=== PATIENT | male | born 1980 ===

== ENCOUNTER 2018-06-12 14:46 | Emergency (ER) | payer OTHER ==
[2018-06-12] MEDS ORDERED: Dextrose 5%/0.45% NS 1,000 ML IV ONE (15:00)
[2018-06-12 15:34] LABS: ALB/GLOB RATIO 1.3 (1.0-2.1); ALT/SGPT 19 U/L (21-72); AST/SGOT 16 U/L (17-59); BLOOD UREA NITROGEN 3 mg/dl (9-20); CALCIUM 8.9 mg/dL (8.4-10.2); GFR NON-AFRICAN AMERICAN > 60
[2018-06-12 15:37] LABS: BASO # 0.1 K/uL (0.0-0.2); BASO % 0.5 % (0.0-2.0); EOS % 0.4 % (0.0-4.0); HEMOGLOBIN 13.8 g/dL (12.0-18.0); LYMPH % 7.5 % (20.0-40.0); MEAN CELL VOLUME 90.1 fl (80.0-94.0); MEAN CORPUSCULAR HEMOGLOBIN 29.2 pg (27.0-31.0); MEAN CORPUSCULAR HGB CONC 32.4 g/dL (33.0-37.0); MEAN PLATELET VOLUME 10.3 fl (7.2-11.7); MONO # 0.7 K/uL (0.0-0.8); MONO % 5.4 % (0.0-10.0); NEUT # 11.3 K/uL (1.8-7.0); NEUT % 86.2 % (50.0-75.0); PLATELET COUNT 202 K/uL (130-400); RBC 4.71 Mil/uL (4.40-5.90); RED CELL DISTRIBUTION WIDTH 13.7 % (11.5-14.5); WHITE BLOOD COUNT 13.1 K/uL (4.8-10.8)
--- NOTE | 2018-06-12 15:49 | ED PDOC ---
HPI: General Adult Time Seen by Provider: 06/12/18 14:53 Chief Complaint (Nursing): Weakness/Neurological Deficit Chief Complaint (Provider): Light Headedness History Per: Patient History/Exam Limitations: no limitations Onset/Duration Of Symptoms: Hrs Current Symptoms Are (Timing): Better Additional Complaint(s): 37 year old male was brought to the ED via ALS after being found by paramedics sitting by the traffic light. Patient's accucheck in the ED was 206 and patient is insulin-dependent diabetic. He did not have breakfast in the morning and felt light headedness. He received oral and IVP glucose with improvement in symptoms. Otherwise, patient is awake and alert. PMD: Dr. Rodriguez Past Medical History Reviewed: Historical Data, Nursing Documentation, Vital Signs Vital Signs: Last Vital Signs Temp 98.7 F 06/12/18 14:47 Pulse 80 06/12/18 14:47 Resp 16 06/12/18 14:47 BP 130/94 H 06/12/18 14:47 Pulse Ox 100 06/12/18 14:47 - Medical History PMH: Diabetes - Family History Family History: States: Unknown Family Hx - Allergies Allergies/Adverse Reactions: Allergies Allergy/AdvReac Type Severity Reaction Status Date / Time No Known Allergies Allergy Verified 06/12/18 14:47 Review of Systems ROS Statement: Except As Marked, All Systems Reviewed And Found Negative Constitutional: Negative for: Fever Cardiovascular: Positive for: Light Headedness Physical Exam - Reviewed Nursing Documentation Reviewed: Yes Vital Signs Reviewed: Yes - Physical Exam Appears: Positive for: Well, Non-toxic, No Acute Distress Head Exam: Positive for: ATRAUMATIC, NORMAL INSPECTION, NORMOCEPHALIC Skin: Positive for: Normal Color, Warm, Dry Eye Exam: Positive for: EOMI, Normal appearance, PERRL ENT: Positive for: Normal ENT Inspection Neck: Positive for: Normal, Painless ROM Cardiovascular/Chest: Positive for: Regular Rate, Rhythm. Negative for: Murmur Respiratory: Positive for: Normal Breath Sounds. Negative for: Respiratory Distress Gastrointestinal/Abdominal: Positive for: Normal Exam, Soft. Negative for: Tenderness Back: Positive for: Normal Inspection Extremity: Positive for: Normal ROM. Negative for: Tenderness, Pedal Edema, Deformity Neurological/Psych: Positive for: Awake, Alert, Normal Tone, Oriented (x3) - Laboratory Results Result Diagrams: 06/12/18 15:13 06/12/18 15:13 Lab Results: Total Bilirubin 0.6 mg/dl (0.2-1.3) 06/12/18 15:13 AST 16 U/L (17-59) L 06/12/18 15:13 ALT 19 U/L (21-72) L 06/12/18 15:13 Alkaline Phosphatase 96 U/L (38-126) 06/12/18 15:13 Total Protein 7.2 G/DL (6.3-8.2) 06/12/18 15:13 Albumin 4.0 g/dL (3.5-5.0) 06/12/18 15:13 Globulin 3.1 gm/dL (2.2-3.9) 06/12/18 15:13 Albumin/Globulin Ratio 1.3 (1.0-2.1) 06/12/18 15:13 - ECG O2 Sat by Pulse Oximetry: 100 (RA) Pulse Ox Interpretation: Normal Medical Decision Making Medical Decision Making: Time: 1757 Plan: EKG CMP CBC w/ differential Glucose Dextrose 5%/0.45% NS 100 ml Reevaluation Scribe Attestation: Documented by Lou Rodriguez, acting as a scribe Michael Phipps MD Repeat accucheck 260. Pt states he takes 15 U Humulog prior to eating. Requesting insulin prior to eating now. Explained that concern is for hypoglycemia. Will give humulog 6U now after eating Pt requesting DC, feels ok after eating. Advised continued stay for glucose monitoring. Pt aware or risks including recurrent hypoglycemia. advised monitoring at home. Provider Scribe Attestation: All medical record entries made by the Scribe were at my direction and personally dictated by me. I have reviewed the chart and agree that the record accurately reflects my personal performance of the history, physical exam, medical decision making, and the department course for this patient. I have also personally directed, reviewed, and agree with the discharge instructions and disposition. Disposition - Clinical Impression Clinical Impression: Hypoglycemia - Patient ED Disposition Is Patient to be Admitted: No Counseled Patient/Family Regarding: Studies Performed, Diagnosis, Need For Followup - Disposition Referrals: formerly [facility] [Outside] Disposition: Routine/Home Disposition Time: 16:23 Condition: FAIR Instructions: Low Blood Sugar, Adult (DC) Forms: [employer] (Croatian)
[2018-06-12] MEDS ORDERED: Insulin Regular 100 units/ml SC STA (15:56)
[2018-06-12] MEDS ORDERED: Insulin Regular 100 units/ml ONE (16:05)
[2018-06-12 17:07] VITALS: BP 120/78; PULSE 78; RESP 19; TEMP 97; O2SAT 98
[2018-06-12 19:18] LABS: BANDS 2 % (0-2); HYPOCHROMIC SLIGHT; LYMPHOCYTE 9 % (20-50); MONOCYTE 5 % (0-10); NEUTROPHIL 84 % (42-75); PLATELET ESTIMATE NORMAL (NORMAL); TOTAL CELLS COUNTED 100
--- NOTE | 2018-06-13 09:02 | CARD ---
APPROVED REPORT Date of service: 06/12/2018 EKG Measurement Heart [id number] <Conclusion> Normal sinus rhythm Normal ECG
== END 2018-06-12 17:07 | disposition home or self-care (01) ==
LOC: H.ER 14:46
DX: E11.649 Type 2 diabetes mellitus with hypoglycemia without coma (principal); Z79.4 Long term (current) use of insulin
CPT/HCPCS: 80053; 82948; 85025; 93005; 96372; 99283; J7042